=== PATIENT | male | born 1930 | race African-American/Black ===

== ENCOUNTER 2016-08-26 09:22 | Emergency (ER) | payer MEDICARE ==
[~2016-08-26] VITALS: Ht 175.3 cm; Wt 72.6 kg
[~2016-08-26 09:22] MED LIST: ASPIRIN81 MG ORAL; CLINDAMYCIN HC300 MG ORAL
[2016-08-26 09:47] VITALS: BP 152/89
[2016-08-26 10:33] LABS: BASOPHILS % (AUTO) 0.6 % (0.0-2.0); EOSINOPHILS % (AUTO) 9.3 % (0.0-3.0); LYMPHOCYTES % (AUTO) 29.9 % (20.0-45.0); MEAN CORPUSCULAR HEMOGLOBIN 31.4 PG (27.0-31.0); MEAN CORPUSCULAR HGB CONC 30.5 G/DL (32.0-36.0); MEAN CORPUSCULAR VOLUME 103 FL (80-99); MEAN PLATELET VOLUME 8.5 FL (6.5-10.1); MONOCYTES % (AUTO) 5.5 % (1.0-10.0); NEUTROPHILS % (AUTO) 54.7 % (45.0-75.0); PLATELET COUNT 144 K/UL (150-450); RED BLOOD COUNT 5.13 M/UL (4.70-6.10); RED CELL DISTRIBUTION WIDTH 16.2 % (11.6-14.8); WHITE BLOOD COUNT 4.7 K/UL (4.8-10.8)
[2016-08-26 10:36] LABS: INR 1.1 (0.9-1.1)
[2016-08-26 10:42] LABS: ALANINE AMINOTRANSFERASE 15 U/L (3-41); ALBUMIN/GLOBULIN RATIO 1.3 (1.0-2.7); ANION GAP 20 (5-15); ASPARTATE AMINO TRANSFERASE 26 U/L (5-40); CALCIUM 9.7 mg/dL (8.6-10.2); CARBON DIOXIDE 23 mEQ/L (20-30); CHLORIDE 100 mEQ/L (98-107); CREATININE 1.3 mg/dL (0.7-1.2); HEMOLYSIS 3; POTASSIUM 3.7 mEQ/L (3.4-4.9); SODIUM 143 mEQ/L (135-145); TOTAL PROTEIN 7.8 g/dL (6.6-8.7)
[2016-08-26 10:43] LABS: TROPONIN I < 0.30 ng/mL (<=0.30)
--- NOTE | 2016-08-26 10:46 | Diagnostic Imaging Report ---
Indications: Shoulder pain Technique: 3 views of the left shoulder Findings: Comparison: None No fracture, dislocation, lytic destruction, periosteal reaction, surrounding soft tissue swelling, or other acute change is demonstrated. No deformity, alignment abnormality, arthritic change, soft tissue calcification, or other chronic change is demonstrated. Left chest wall pacemaker. Left hilar nodular calcifications. IMPRESSION: Pacemaker Calcified old granulomatous disease left pulmonary hilum Otherwise negative left shoulder series.
--- NOTE | 2016-08-26 10:47 | Diagnostic Imaging Report ---
Indication: Chest pain Technique: Single portable AP view of the chest. Findings: Comparison: None. Cardiac silhouette enlarged. Thoracic aorta calcified, elongated. Calcified nodules left hilum. Left chest wall pacemaker, lead tips in the regions of right atrium and ventricle, respectively. The bones and extra pulmonary soft tissues, remainder of the cardiomediastinal silhouette, pulmonary vasculature and parenchyma, and pleural surfaces are unremarkable. IMPRESSION: No evidence of acute cardiopulmonary disease Cardiomegaly with pacemaker Aortosclerosis and probable chronic hypertensive change Calcified old granulomatous disease.
--- NOTE | 2016-08-26 10:52 | Emergency Room Report ---
History of Present Illness General Chief Complaint: Pain Source: Patient Present Illness HPI The patient presents with worsening of his left shoulder pain and pain from his neuropathy in his feet. He states the pain has become severe. Denies any fevers, chills, cough. The pain in his shoulder is nonexertional. He is not taking any medicine at this time. He is frustrated his MD is not helping. Pain reported 2/10, though he states keeps him awake. No trauma. The patient is post pacemaker placement. He denies diabetes or hypertension. Allergies: Coded Allergies: PENICILLINS (Verified Allergy, Intermediate, 10/05/15) Patient History Past Medical History: see triage record Social History Narrative at home Reviewed Nursing Documentation: PMH: Agreed, PSxH: Agreed Nursing Documentation-PMH Hx Cardiac Problems: Yes Hx Hypertension: Yes Hx Pacemaker: Yes - LEFT UPPER CHEST Hx Seizures: No - peripheral neuropathy Review of Systems All Other Systems: negative except mentioned in HPI Physical Exam Vital Signs Date Time Temp Pulse Resp B/P Pulse Ox O2 Delivery O2 Flow Rate FiO2 08/26/16 09:31 98.1 81 20 152/89 100 Room Air Sp02 EP Interpretation: reviewed, normal General Appearance: well appearing, no apparent distress, GCS 15 Head: normocephalic Eyes: bilateral eye PERRL, bilateral eye normal inspection ENT: moist mucus membranes, other - slight facial assymmetry Neck: full range of motion, supple Respiratory: chest non-tender, lungs clear, normal breath sounds Cardiovascular #1: regular rate, rhythm, no edema, other - some venous disease Cardiovascular #2: 2+ radial (R) Gastrointestinal: normal inspection, normal bowel sounds, non tender, no mass, non-distended Musculoskeletal: back normal, gait/station normal, normal range of motion - however, some shoulder pain with lifting and abduction against pressure Neurologic: alert, oriented x3, motor strength/tone normal, DTRs symmetric, sensory intact, cerebellar normal, normal gait, speech normal Psychiatric: mood/affect normal - though pressured Skin: normal inspection, warm/dry Medical Decision Making Diagnostic Impression: Primary Impression: Bursitis Qualified Codes: M75.52 - Bursitis of left shoulder Additional Impression: Peripheral neuropathic pain ER Course Patient presents with worsened shoulder and neuropathic pain. Ddx; cardiac cause, bursitis, DJD, rotator cuff, peripheral neuropathy, electrolyte abnormality. Evaluation needs to exclude cardiac cause. Electrolytes and xrays ordered. Analgesia also ordered. EKG no acute injury. Electrolytes and CBC unremarkable except for some polycythemia and elevated creatinine. These findings were discussed with the patient. Xrays unremarkable. .Patient improved with treatment. Discussed treatment of these pains and also physical therapy. Patient stable for outpatient observation and treatment. Labs Test 08/26/16 10:15 08/26/16 10:18 08/26/16 10:40 White Blood Count 4.7 K/UL (4.8-10.8) Red Blood Count 5.13 M/UL (4.70-6.10) Hemoglobin 16.1 G/DL (14.2-18.0) Hematocrit 52.9 % (42.0-52.0) Mean Corpuscular Volume 103 FL (80-99) Mean Corpuscular Hemoglobin 31.4 PG (27.0-31.0) Mean Corpuscular Hemoglobin Concent 30.5 G/DL (32.0-36.0) Red Cell Distribution Width 16.2 % (11.6-14.8) Platelet Count 144 K/UL (150-450) Mean Platelet Volume 8.5 FL (6.5-10.1) Neutrophils (%) (Auto) 54.7 % (45.0-75.0) Lymphocytes (%) (Auto) 29.9 % (20.0-45.0) Monocytes (%) (Auto) 5.5 % (1.0-10.0) Eosinophils (%) (Auto) 9.3 % (0.0-3.0) Basophils (%) (Auto) 0.6 % (0.0-2.0) Erythrocyte Sedimentation Rate 6 MM/HR (0-30) Prothrombin Time 12.0 SEC (9.30-11.50) Prothromb Time International Ratio 1.1 (0.9-1.1) Activated Partial Thromboplast Time 26 SEC (23-33) Sodium Level 143 mEQ/L (135-145) Potassium Level 3.7 mEQ/L (3.4-4.9) Chloride Level 100 mEQ/L (98-107) Carbon Dioxide Level 23 mEQ/L (20-30) Anion Gap 20 (5-15) Blood Urea Nitrogen 18 mg/dL (7-23) Creatinine 1.3 mg/dL (0.7-1.2) Estimat Glomerular Filtration Rate mL/min (>60) Glucose Level 155 mg/dL (74-106) Calcium Level 9.7 mg/dL (8.6-10.2) Total Bilirubin 1.3 mg/dL (0.0-1.2) Direct Bilirubin 0.3 mg/dL (0.1-0.3) Aspartate Amino Transf (AST/SGOT) 26 U/L (5-40) Alanine Aminotransferase (ALT/SGPT) 15 U/L (3-41) Alkaline Phosphatase 64 U/L (40-129) Total Creatine Kinase 239 U/L (38-174) Troponin I < 0.30 ng/mL (<=0.30) Pro-B-Type Natriuretic Peptide 890 pg/mL (0-450) Total Protein 7.8 g/dL (6.6-8.7) Albumin 4.5 g/dL (3.5-5.2) Globulin 3.3 g/dL Albumin/Globulin Ratio 1.3 (1.0-2.7) Urine Color Yellow Urine Appearance Clear Urine pH 6 (4.5-8.0) Urine Specific [place] 1.020 (1.005-1.035) Urine Protein 2+ (NEGATIVE) Urine Glucose (UA) Negative (NEGATIVE) Urine Ketones 1+ (NEGATIVE) Urine Occult Blood 3+ (NEGATIVE) Urine Nitrite Negative (NEGATIVE) Urine Bilirubin Negative (NEGATIVE) Urine Urobilinogen Normal MG/DL (0.0-1.0) Urine Leukocyte Esterase 1+ (NEGATIVE) Urine RBC 5-10 /HPF (0 - 0) Urine WBC 2-4 /HPF (0 - 0) Urine Squamous Epithelial Cells Few /LPF (NONE/OCC) Urine Bacteria Few /HPF (NONE) Urine Hyaline Casts 0-2 /LPF (NONE) Urine Mucus Few /LPF (NONE/OCC) Urine Opiates Screen Negative (NEGATIVE) Urine Barbiturates Screen Negative (NEGATIVE) Phencyclidine (PCP) Screen Negative (NEGATIVE) Urine Amphetamines Screen Negative (NEGATIVE) Urine Benzodiazepines Screen Negative (NEGATIVE) Urine Cocaine Screen Negative (NEGATIVE) Urine Marijuana (THC) Screen Negative (NEGATIVE) EKG Diagnostic Results Rate: other - paced Rhythm: other ST Segments: no acute changes Rhythm Strip Diag. Results EP Interpretation: yes Rhythm: no PVC's, no ectopy, other - paced Chest X-Ray Diagnostic Results Chest X-Ray Ordered: Yes # of Views/Limited/Complete: 1 View EP Interpretation: Yes Interpretation: no consolidation, no effusion, no pneumothorax, other - pacer Indication: Other Impression: No acute disease Interpreting ER Provider: Cooper Other X-Ray Diagnostic Results X-Ray ordered: L shoulder # of Views/Limited Vs Complete: 3 View EP Interpretation: Yes Interpretation: no fractures, no dislocation, no soft tissue swelling Indication: Pain Impression: No acute disease Interpreting ER Provider: cooper Last Vital Signs Date Time Temp Pulse Resp B/P Pulse Ox O2 Delivery O2 Flow Rate FiO2 08/26/16 13:11 98.1 78 20 145/86 100 Room Air Status: improved Disposition: HOME, SELF-CARE Condition: Improved Scripts Gabapentin* (GABAPENTIN*) 100 Mg Capsule 200 MG ORAL THREE TIMES A DAY, #30 CAP 2 Refills Prov: Aydin Gamboa M.D. 08/26/16 Ibuprofen* (MOTRIN*) 600 Mg Tablet 600 MG ORAL Q6H Y for For Pain, #20 TAB Prov: Aydin Gamboa M.D. 08/26/16 Tramadol Hcl* (ULTRAM*) 50 Mg Tablet 50 MG ORAL Q6H Y for For Pain, #10 TAB 0 Refills Prov: Aydin Gamboa M.D. 08/26/16 Vitamin B Complex (VITAMIN B COMPLEX) 1 Each Capsule 1 CAP ORAL DAILY, #30 CAP 0 Refills Prov: Aydin Gamboa M.D. 08/26/16 Referrals: KEIRY SALDANA (PCP) Aydin Gamboa M.D. Aug 26, 2016 10:52
[2016-08-26 10:57] LABS: APPEARANCE,URINE CLEAR; KETONES,URINE 1+ (NEGATIVE); LEUKOCYTE ESTERASE ,URINE 1+ (NEGATIVE); NITRITE,URINE NEGATIVE (NEGATIVE); PH,URINE 6 (4.5-8.0); PROTEIN,URINE 2+ (NEGATIVE); UROBILINOGEN,URINE NORMAL MG/DL (0.0-1.0)
[2016-08-26 11:03] LABS: BILIRUBIN,DIRECT 0.3 mg/dL (0.1-0.3)
[2016-08-26 11:12] LABS: BACTERIA,URINE FEW /HPF; HYALINE CASTS, URINE 0-2 /LPF; MUCUS,URINE FEW /LPF (NONE/OCC); SQUAMOUS EPITHELIAL CELL,UR FEW /LPF (NONE/OCC)
[2016-08-26 11:43] LABS: ERYTHROCYTE SEDIMENTATION RATE 6 MM/HR (0-30)
[2016-08-26 12:56] VITALS: BP 145/86
[2016-08-26 13:11] VITALS: BP 145/86
[2016-08-26] MEDS ORDERED: VITAMIN B COMP1 EAC2 ORAL (13:12)
[2016-08-26] MEDS ORDERED: IBUPROFEN600 MG ORAL (13:12)
[2016-08-26] MEDS ORDERED: GABAPENTIN100 MG ORAL (13:12)
[2016-08-26] MEDS ORDERED: TRAMADOL HCL50 MG ORAL (13:12)
== END 2016-08-26 13:23 | disposition home or self-care (01) ==
LOC: EMR 09:49
DX: M75.52 Bursitis of left shoulder (principal); G62.9 Polyneuropathy, unspecified; Z88.0 Allergy status to penicillin; I51.7 Cardiomegaly; Z95.0 Presence of cardiac pacemaker
CPT/HCPCS: 36415; 71010; 80053; 80300; 81003; 82248; 82550; 83880; 84484; 85025; 85610; 85651; 85730; 93005; 99284

== ENCOUNTER 2018-09-03 23:06 | Emergency (ER) | payer MEDICARE ==
[~2018-09-03] VITALS: Ht 177.8 cm; Wt 83.9 kg
[~2018-09-03 23:06] MED LIST changes: +GABAPENTIN100 MG ORAL; +IBUPROFEN600 MG ORAL; +TRAMADOL HCL50 MG ORAL; +VITAMIN B COMP1 EAC2 ORAL
[2018-09-03] MEDS ORDERED: NKM (23:12)
--- NOTE | 2018-09-03 23:17 | NUR ---
ED Nurse Note: SAUNDRA JOLLY RA [address] C/O ALOC SOB X 2230. PER EMS PT LIVES IN CAR . SPO2 96% ROOM AIR. Pt is AO x 4times, VSS, on room air no distress. ERMD seen Pt at bedside.
--- NOTE | 2018-09-03 23:28 | Emergency Room Report ---
History of Present Illness General Chief Complaint: Altered Level of Consciousness Source: Patient, EMS Present Illness HPI This is an 87-year-old male with history of pacemaker and hypertension. He presents with altered mental status and fever. He said he is not homeless but bystander called 911 because his car was parked on the sidewalk. His call was packed with belongings. Her EMS, he was confused and answering questions appropriately. Patient complained of shortness of breath. He said is been going for a while. Also with fever. Unknown duration. No nausea no vomiting. Patient is not a smoker or an alcoholic. Denies any other complaint. History otherwise challenging because of his mental status. Allergies: Coded Allergies: PENICILLINS (Verified Allergy, Intermediate, 10/05/15) Patient History Past Medical History: see triage record, old chart reviewed, HTN, CAD Past Surgical History: pacemaker Pertinent Family History: none Social History: Denies: smoking Immunizations: other Reviewed Nursing Documentation: PMH: Agreed; PSxH: Agreed Nursing Documentation-PMH Past Medical History: No History, Except For Hx Cardiac Problems: Yes Hx Hypertension: Yes Hx Pacemaker: Yes - LEFT UPPER CHEST Hx Seizures: No - peripheral neuropathy Review of Systems Constitutional: Reports: fever, malaise, weakness Eye: Denies: eye pain, blurred vision ENT: Denies: ear pain, nose congestion, throat swelling Respiratory: Reports: cough, shortness of breath Cardiovascular: Denies: chest pain, palpitations Gastrointestinal: Denies: abdominal pain, diarrhea, nausea, vomiting Musculoskeletal: Denies: back pain, joint pain Skin: Denies: rash Neurological: Denies: headache, numbness Endocrine: Denies: increased thirst, increased urine Hematologic/Lymphatic: Denies: easy bruising All Other Systems: negative except mentioned in HPI Physical Exam Vital Signs Date Time Temp Pulse Resp B/P (MAP) Pulse Ox O2 Delivery O2 Flow Rate FiO2 09/03/18 23:07 102.6 78 18 156/98 (117) 96 Room Air Vitals with fever Sp02 EP Interpretation: reviewed, normal General Appearance: alert, other - Ill-appearing Head: normocephalic, atraumatic Eyes: bilateral eye PERRL, bilateral eye EOMI ENT: hearing grossly normal, normal pharynx Neck: full range of motion, supple, no meningismus Respiratory: chest non-tender, decreased breath sounds, rhonchi Cardiovascular #1: regular rate, rhythm, no murmur Gastrointestinal: normal bowel sounds, non tender, no mass, no organomegaly, no bruit, non-distended Musculoskeletal: back normal, gait/station normal, normal range of motion Neurologic: other - confused Psychiatric: mood/affect normal Medical Decision Making Diagnostic Impression: Primary Impression: Sepsis Qualified Codes: A41.9 - Sepsis, unspecified organism Additional Impressions: Bronchitis Encephalopathy acute RODNEY (acute kidney injury) ER Course Patient presents with fever and coughing. Chest x-ray showed atelectasis but no definitive infiltrates. Clinically he has rhonchi on exam. Because of the fever and cough will put on antibiotics for possible early pneumonia. Patient said he is not homeless but he was found in his car with his belongings. No evidence of meningitis. I suspect that he has underlying dementia also. His neck is supple. No evidence of meningitis. No evidence of any acute abdomen or UTI. I discussed the case with Dr. Coburn he said that the patient for transfer to [facility]. Lab Results Impression Labs unremarkable EKG Diagnostic Results Rate: normal Rhythm: NSR ST Segments: other - Paced Rhythm Strip Diag. Results EP Interpretation: yes Rate: 80 Rhythm: NSR, no PVC's, no ectopy Chest X-Ray Diagnostic Results Chest X-Ray Diagnostic Results : Chest X-Ray Ordered: Yes # of Views/Limited/Complete: 1 View Indication: Shortness of Breath EP Interpretation: Yes Interpretation: no consolidation, no effusion, no pneumothorax, other - Atelectasis right lower lobe Impression: Other - atelectasis Electronically Signed by: Merlin Bonner MD Last Vital Signs Date Time Temp Pulse Resp B/P (MAP) Pulse Ox O2 Delivery O2 Flow Rate FiO2 09/03/18 23:07 102.6 78 18 156/98 (117) 96 Room Air Status: improved Disposition: XFER T-[facility] Condition: Stable Merlin Bonner MD Sep 03, 2018 23:28
[2018-09-03] MEDS ORDERED: Sodium Chloride 2,500 ML IVLG ONE (23:30)
[2018-09-03] MEDS ORDERED: Acetaminophen 500mg (ES) tab ORAL ONE (23:30)
--- NOTE | 2018-09-03 23:30 | NUR ---
ED Nurse Note: Blood and urine sample sent to lab.
[2018-09-03 23:49] LABS: HEMOGLOBIN 15.7 G/DL (14.2-18.0); MEAN CORPUSCULAR VOLUME 103 FL (80-99); PLATELET COUNT 126 K/UL (150-450); RED BLOOD COUNT 4.75 M/UL (4.70-6.10); RED CELL DISTRIBUTION WIDTH 15.6 % (11.6-14.8); WHITE BLOOD COUNT 8.6 K/UL (4.8-10.8)
--- NOTE | 2018-09-03 23:49 | NUR ---
ED Nurse Note: [employer] AT BEDSIDE.
[2018-09-03 23:53] LABS: APPEARANCE,URINE CLEAR; BILIRUBIN, URINE NEGATIVE (NEGATIVE); COLOR,URINE PALE YELLOW; GLUCOSE, URINE (UA) NEGATIVE (NEGATIVE); KETONES,URINE NEGATIVE (NEGATIVE); LEUKOCYTE ESTERASE ,URINE NEGATIVE (NEGATIVE); NITRITE,URINE NEGATIVE (NEGATIVE); PH,URINE 6 (4.5-8.0); PROTEIN,URINE 1+ (NEGATIVE); UROBILINOGEN,URINE NORMAL MG/DL (0.0-1.0)
--- NOTE | 2018-09-03 23:55 | Diagnostic Imaging Report ---
EXAM: XR Chest, 1 View CLINICAL HISTORY: SOB. TECHNIQUE: Frontal view of the chest. COMPARISON: CXR dated 08/26/2016. FINDINGS: Lungs: Mild right basilar atelectasis. Lungs otherwise appear clear. Pleural space: No significant pleural effusion. No pneumothorax. Heart: Enlarged cardiac silhouette. Stable cardiac device. Mediastinum: Widening of mediastinum measuring 13 cm transverse which could be partly related to mild rotation. Bones/joints: Stable osseous structures. IMPRESSION: 1. Widened mediastinum which could be partly related to mild rotation although mediastinal pathology is not excluded. If there is clinical concern for acute mediastinal process, CTA of the chest is recommended to further assess. 2. Mild right basilar atelectasis. Lungs otherwise appear clear. 3. Enlarged cardiac silhouette. Stable cardiac device.
[2018-09-04 00:04] VITALS: BP 135/106
[2018-09-04 00:04] LABS: INR 1.1 (0.9-1.1)
[2018-09-04 00:21] LABS: ANION GAP 10 mmol/L (5-15); BLOOD UREA NITROGEN 12 mg/dL (7-18); CALCIUM 9.1 MG/DL (8.5-10.1); CARBON DIOXIDE 28 MMOL/L (21-32); CHLORIDE 106 MMOL/L (98-107); CREATININE 1.5 MG/DL (0.55-1.30); POTASSIUM 4.3 MMOL/L (3.5-5.1); SODIUM 143 MMOL/L (136-145)
[2018-09-04 00:34] LABS: ALANINE AMINOTRANSFERASE 12 U/L (12-78); ALBUMIN 3.7 G/DL (3.4-5.0); ALBUMIN/GLOBULIN RATIO 0.9 (1.0-2.7); ALKALINE PHOSPHATASE 79 U/L (46-116); ASPARTATE AMINO TRANSFERASE 26 U/L (15-37); BILIRUBIN,TOTAL 1.7 MG/DL (0.2-1.0); CKMB 1.8 NG/ML (0.0-3.6); CREATINE KINASE 279 U/L (26-308)
[2018-09-04 00:35] LABS: BILIRUBIN,DIRECT 0.3 MG/DL (0.0-0.3)
--- NOTE | 2018-09-04 01:08 | NUR ---
ED Nurse Note: Repect lactic acid sent to lab.
[2018-09-04] MEDS ORDERED: Azithromycin 250mg tab ORAL ONE (01:15)
[2018-09-04] MEDS ORDERED: cefTRIAXone 1 GM in NS 55 ML IVPB ONE (01:15)
--- NOTE | 2018-09-04 01:38 | NUR ---
called, speaking with .
[2018-09-04 01:55] VITALS: BP 123/96
--- NOTE | 2018-09-04 01:57 | NUR ---
ED Nurse Note: Provide water for Pt, Pt VSS.
[2018-09-04 02:33] VITALS: BP 105/65
--- NOTE | 2018-09-04 03:14 | NUR ---
ED Nurse Note: Recheck Temp 98.7F.
--- NOTE | 2018-09-04 03:37 | NUR ---
ED Nurse Note: Report given to [facility] RN Christine. Pt will go to Tele unit.
[2018-09-04] MEDS ORDERED: Albuterol ud Inhalation HHN ONE (04:00)
[2018-09-04 04:49] VITALS: BP 117/64
--- NOTE | 2018-09-04 04:50 | NUR ---
ED Nurse Note: EMT arrived and tack picker Pt. Report given tp Addendum: 09/04/18 at 0451 by [facility] ED Nurse Note: EMT arrived and tack picker Pt. Report given to ELINOR Gallagher. Pt is AO x 4times, VSS, on 2L N/C no distress. All belongings gave to EMT team.
[2018-09-04 05:00] VITALS: BP 117/64
== END 2018-09-04 05:02 | disposition short-term general hospital (02) ==
LOC: EDBD 23:06 → EMR 23:19
DX: A41.9 Sepsis, unspecified organism (principal); J20.9 Acute bronchitis, unspecified; G93.40 Encephalopathy, unspecified; N17.9 Acute kidney failure, unspecified; Z88.0 Allergy status to penicillin; I10 Essential (primary) hypertension; Z95.0 Presence of cardiac pacemaker; G62.9 Polyneuropathy, unspecified; Z59.0 Homelessness
CPT/HCPCS: 36415; 71045; 80053; 81003; 82248; 82550; 82553; 83605; 84484; 85007; 85025; 85610; 85730; 87040; 93005; 94640; 94664; 96361; 96365; 99285; J0696

== ENCOUNTER 2019-02-06 20:36 | Inpatient (IN) | payer MEDICARE ==
[~2019-02-06] VITALS: Ht 185.4 cm; Wt 82.6 kg
[~2019-02-06 20:36] MED LIST changes: +NKM
[2019-02-06 21:00] VITALS: BP 163/100
[2019-02-06 21:14] LABS: BASOPHILS % (AUTO) 0.9 % (0.0-2.0); EOSINOPHILS % (AUTO) 8.1 % (0.0-3.0); HEMATOCRIT 42.2 % (42.0-52.0); HEMOGLOBIN 14.4 G/DL (14.2-18.0); LYMPHOCYTES % (AUTO) 39.8 % (20.0-45.0); MEAN CORPUSCULAR VOLUME 97 FL (80-99); NEUTROPHILS % (AUTO) 42.2 % (45.0-75.0); PLATELET COUNT 146 K/UL (150-450); RED BLOOD COUNT 4.36 M/UL (4.70-6.10); RED CELL DISTRIBUTION WIDTH 13.3 % (11.6-14.8); WHITE BLOOD COUNT 4.5 K/UL (4.8-10.8)
[2019-02-06 22:04] LABS: ANION GAP 3 mmol/L (5-15); BLOOD UREA NITROGEN 22 mg/dL (7-18); CARBON DIOXIDE 34 MMOL/L (21-32); CHLORIDE 110 MMOL/L (98-107); CREATININE 1.3 MG/DL (0.55-1.30); POTASSIUM 5.2 MMOL/L (3.5-5.1); SODIUM 146 MMOL/L (136-145)
--- NOTE | 2019-02-06 22:08 | Emergency Room Report ---
History of Present Illness General Chief Complaint: Pain Source: Patient, Medical Record Present Illness HPI Patient presents with complaints of neuropathy and tingling to both of his feet reports that he has had this several times in the past Denies any fall or trauma denies any pelvic pain denies any chest pain or shortness of breath Denies any focal weakness Patient denies any history of diabetes denies any recent fall Allergies: Coded Allergies: PENICILLINS (Verified Allergy, Intermediate, 10/05/15) Patient History Past Medical History: see triage record Reviewed Nursing Documentation: PMH: Agreed; PSxH: Agreed Nursing Documentation-PMH Past Medical History: No History, Except For Hx Cardiac Problems: Yes Hx Hypertension: Yes Hx Pacemaker: Yes - LEFT UPPER CHEST Hx Seizures: No - peripheral neuropathy Review of Systems All Other Systems: negative except mentioned in HPI Physical Exam Vital Signs Date Time Temp Pulse Resp B/P (MAP) Pulse Ox O2 Delivery O2 Flow Rate FiO2 02/06/19 20:34 98.8 64 19 163/100 (121) 98 Room Air Sp02 EP Interpretation: reviewed, normal General Appearance: well appearing, no apparent distress Head: normocephalic Eyes: bilateral eye PERRL, bilateral eye EOMI ENT: EOM grossly intact Neck: supple Respiratory: lungs clear, no respiratory distress, no retraction Cardiovascular #1: regular rate, rhythm Gastrointestinal: non tender Musculoskeletal: other - Patient has equal architect naval bilaterally moving both lower extremities equally, subjectively points to the bottom of both feet for the tingling sensation Neurologic: alert, oriented Psychiatric: normal inspection Skin: no rash Lymphatic: no adenopathy Medical Decision Making Diagnostic Impression: Primary Impression: Hyperkalemia Additional Impressions: Hypernatremia Peripheral neuropathic pain ER Course Given the patient's history and presentation multiple differentials are in consideration extensive blood work is initiated Patient sodium potassium and chloride are all elevated Further hydration is initiated Patient has further pain control and admitted for further care Labs Test 02/06/19 20:54 02/06/19 21:14 White Blood Count 4.5 K/UL (4.8-10.8) Red Blood Count 4.36 M/UL (4.70-6.10) Hemoglobin 14.4 G/DL (14.2-18.0) Hematocrit 42.2 % (42.0-52.0) Mean Corpuscular Volume 97 FL (80-99) Mean Corpuscular Hemoglobin 32.9 PG (27.0-31.0) Mean Corpuscular Hemoglobin Concent 34.0 G/DL (32.0-36.0) Red Cell Distribution Width 13.3 % (11.6-14.8) Platelet Count 146 K/UL (150-450) Mean Platelet Volume 7.9 FL (6.5-10.1) Neutrophils (%) (Auto) 42.2 % (45.0-75.0) Lymphocytes (%) (Auto) 39.8 % (20.0-45.0) Monocytes (%) (Auto) 9.0 % (1.0-10.0) Eosinophils (%) (Auto) 8.1 % (0.0-3.0) Basophils (%) (Auto) 0.9 % (0.0-2.0) Sodium Level 146 MMOL/L (136-145) Potassium Level 5.2 MMOL/L (3.5-5.1) Chloride Level 110 MMOL/L (98-107) Carbon Dioxide Level 34 MMOL/L (21-32) Anion Gap 3 mmol/L (5-15) Blood Urea Nitrogen 22 mg/dL (7-18) Creatinine 1.3 MG/DL (0.55-1.30) Estimat Glomerular Filtration Rate mL/min (>60) Glucose Level 90 MG/DL (74-106) Calcium Level 9.0 MG/DL (8.5-10.1) Total Bilirubin 0.5 MG/DL (0.2-1.0) Aspartate Amino Transf (AST/SGOT) 38 U/L (15-37) Alanine Aminotransferase (ALT/SGPT) 27 U/L (12-78) Alkaline Phosphatase 79 U/L (46-116) Total Protein 7.1 G/DL (6.4-8.2) Albumin 3.1 G/DL (3.4-5.0) Globulin 4.0 g/dL Albumin/Globulin Ratio 0.8 (1.0-2.7) EKG Diagnostic Results Rate: normal Rhythm: NSR ST Segments: no acute changes Rhythm Strip Diag. Results EP Interpretation: yes Rate: 66 Rhythm: NSR, no PVC's, no ectopy Last Vital Signs Date Time Temp Pulse Resp B/P (MAP) Pulse Ox O2 Delivery O2 Flow Rate FiO2 02/06/19 21:00 98.8 19 163/100 98 Room Air 02/06/19 20:34 64 Status: improved Disposition: ADMITTED INPATIENT Condition: Serious Referrals: NON PHYSICIAN (PCP) Dipak Menard DO Feb 06, 2019 22:08
[2019-02-06 22:09] LABS: ALANINE AMINOTRANSFERASE 27 U/L (12-78); ALBUMIN 3.1 G/DL (3.4-5.0); ALBUMIN/GLOBULIN RATIO 0.8 (1.0-2.7); ALKALINE PHOSPHATASE 79 U/L (46-116); ASPARTATE AMINO TRANSFERASE 38 U/L (15-37); BILIRUBIN,TOTAL 0.5 MG/DL (0.2-1.0)
[2019-02-06 23:56] VITALS: BP 162/98
[2019-02-07 04:00] VITALS: BP 152/99
[2019-02-07] MEDS ORDERED: Morphine Sulfate 2mg/ml Inj(IV/IM USE ONLY) IVP PRN (07:15)
[2019-02-07] MEDS ORDERED: HYDROcodone/Acetamin 10/325 tab ORAL PRN (07:15)
[2019-02-07 07:57] LABS: ANION GAP 2 mmol/L (5-15); BLOOD UREA NITROGEN 18 mg/dL (7-18); CALCIUM 8.8 MG/DL (8.5-10.1); CARBON DIOXIDE 32 MMOL/L (21-32); CHLORIDE 109 MMOL/L (98-107); CREATININE 1.3 MG/DL (0.55-1.30); POTASSIUM 4.8 MMOL/L (3.5-5.1); SODIUM 143 MMOL/L (136-145)
[2019-02-07 08:00] VITALS: BP 154/92
[2019-02-07 08:07] LABS: EOSINOPHILS % (AUTO) 8.2 % (0.0-3.0); HEMATOCRIT 43.2 % (42.0-52.0); HEMOGLOBIN 14.3 G/DL (14.2-18.0); LYMPHOCYTES % (AUTO) 37.4 % (20.0-45.0); MEAN CORPUSCULAR VOLUME 99 FL (80-99); MONOCYTES % (AUTO) 7.9 % (1.0-10.0); NEUTROPHILS % (AUTO) 44.5 % (45.0-75.0); PLATELET COUNT 145 K/UL (150-450); RED BLOOD COUNT 4.37 M/UL (4.70-6.10); RED CELL DISTRIBUTION WIDTH 15.1 % (11.6-14.8); WHITE BLOOD COUNT 3.8 K/UL (4.8-10.8)
[2019-02-07] MEDS: D5 1/2NS 1,000 ML IV SCH ×2 (08:35→17:24)
[2019-02-07 12:00] VITALS: BP 147/81
[2019-02-07 16:00] VITALS: BP 140/82
--- NOTE | 2019-02-07 16:04 | Diagnostic Imaging Report ---
Indication: Abnormal chest sounds Technique: One view of the chest Comparison: 09/03/2018 Findings: There are inspiration currently. There is a left chest bifocal pacemaker again demonstrated. The heart is borderline enlarged. The aorta is tortuous ectatic and calcified. No significant interim change Impression: No acute process
[2019-02-07 18:02] LABS: APPEARANCE,URINE CLEAR; BILIRUBIN, URINE NEGATIVE (NEGATIVE); COLOR,URINE PALE YELLOW; GLUCOSE, URINE (UA) NEGATIVE (NEGATIVE); KETONES,URINE NEGATIVE (NEGATIVE); LEUKOCYTE ESTERASE ,URINE NEGATIVE (NEGATIVE); NITRITE,URINE NEGATIVE (NEGATIVE); PH,URINE 7 (4.5-8.0); PROTEIN,URINE NEGATIVE (NEGATIVE); UROBILINOGEN,URINE NORMAL MG/DL (0.0-1.0)
[2019-02-07 20:00] VITALS: BP_SYST 122; BP_SYST 125; BP_DIAS 75; BP_DIAS 76
--- NOTE | 2019-02-07 22:30 | History and Physical Report ---
DATE OF ADMISSION: 02/07/2019 HISTORY OF PRESENT ILLNESS: The patient is an 88-year-old homeless man, who reports that he had severe burning pain in his feet that he has had before. He is living on the [address] on and has another homeless person to call 911. He was brought to the emergency department and found to have some dehydration and admission was arranged. The patient states that he is feeling much better since getting intravenous fluids. PAST MEDICAL HISTORY: The records indicate a history of hypertension and he has a pacemaker in place, but he cannot remember how long it was put in. He may have a history of coronary disease and dementia. He was admitted through the emergency department and transferred to another hospital in August of this year with pneumonia. CURRENT MEDICATIONS: Numerous home medications listed, but he states he does not take any medication. ALLERGIES: Penicillin. REVIEW OF SYSTEMS: Otherwise unremarkable. He had no fevers, chills, or sweats. No chest pain or shortness of breath. He has no nausea, vomiting, or diarrhea. There is no difficulty urinating. PHYSICAL EXAMINATION: GENERAL: The patient is well developed, but appears malnourished. HEENT: The head is normocephalic. NECK: No jugular venous distention. CHEST: Clear. Pacemaker is in the left subclavian region. CARDIAC: Rhythm is regular without murmur or gallop. ABDOMEN: Soft and nontender. Liver and spleen not enlarged. EXTREMITIES: No clubbing, cyanosis, or edema. NEUROLOGIC: Memory is poor. Orientation is x2 for the place and person, but not the date. LABORATORY STUDIES: Labs show sodium 146, potassium 5.2, BUN is 22, and creatinine 1.3 on admission. The albumin is 3.1. The hemoglobin is normal. White count is 4500 and platelets 146,000. Urinalysis is pending. IMPRESSION: 1. Dehydration. 2. Painful neuropathy. 3. Homelessness. 4. Dementia. 5. Mild malnutrition with low albumin. 6. Pacemaker. 7. Hypertension. 8. History of coronary disease, inactive. PLAN: The patient will be given intravenous fluids and gabapentin will be initiated and we will get social service to start discharge planning. Ananda Resendiz M.D. DR: SUKHJINDER JOB#: [id number] CC: Ananda Resendiz M.D.; Fax#: [phone]
[2019-02-08] VITALS (7 sets, daily range): BP systolic 111–154; BP diastolic 64–84
[2019-02-08] MEDS: D5 1/2NS 1,000 ML IV SCH ×2 (00:31→07:28)
[2019-02-08 06:35] LABS: BASOPHILS % (AUTO) 0.9 % (0.0-2.0); EOSINOPHILS % (AUTO) 9.4 % (0.0-3.0); HEMATOCRIT 40.6 % (42.0-52.0); HEMOGLOBIN 13.1 G/DL (14.2-18.0); MEAN CORPUSCULAR VOLUME 100 FL (80-99); MONOCYTES % (AUTO) 6.6 % (1.0-10.0); PLATELET COUNT 119 K/UL (150-450); RED BLOOD COUNT 4.08 M/UL (4.70-6.10); RED CELL DISTRIBUTION WIDTH 14.5 % (11.6-14.8); WHITE BLOOD COUNT 3.6 K/UL (4.8-10.8)
[2019-02-08 07:17] LABS: ALANINE AMINOTRANSFERASE 22 U/L (12-78); ALBUMIN 2.9 G/DL (3.4-5.0); ALBUMIN/GLOBULIN RATIO 0.8 (1.0-2.7); ALKALINE PHOSPHATASE 65 U/L (46-116); ANION GAP 7 mmol/L (5-15); ASPARTATE AMINO TRANSFERASE 32 U/L (15-37); BILIRUBIN,TOTAL 0.8 MG/DL (0.2-1.0); BLOOD UREA NITROGEN 15 mg/dL (7-18); CALCIUM 8.8 MG/DL (8.5-10.1); CARBON DIOXIDE 27 MMOL/L (21-32); CHLORIDE 108 MMOL/L (98-107); CHOLESTEROL 154 MG/DL (< 200); CREATININE 1.2 MG/DL (0.55-1.30); HDL CHOLESTEROL 49 MG/DL (40-60); POTASSIUM 4.1 MMOL/L (3.5-5.1); SODIUM 142 MMOL/L (136-145); TRIGLYCERIDES 42 MG/DL (30-150)
--- NOTE | 2019-02-08 11:32 | General Progress Note ---
Assessment/Plan Status: progressing Assessment/Plan: 1. Dehydration. 2. Painful neuropathy. 3. Homelessness. 4. Dementia. 5. Mild malnutrition with low albumin. 6. Pacemaker. 7. Hypertension. 8. History of coronary disease, inactive. feels weak, gait unsteady PT eval BUN better; dc IVF dc plan to SNF for PT Subjective Constitutional: Reports: weakness Allergies: Coded Allergies: PENICILLINS (Verified Allergy, Intermediate, 10/05/15) Subjective neuropathic pain, LEs Objective Last 24 Hour Vital Signs Date Time Temp Pulse Resp B/P (MAP) Pulse Ox O2 Delivery O2 Flow Rate FiO2 02/08/19 10:35 Room Air 02/08/19 08:00 97.9 60 18 127/82 (97) 98 02/08/19 04:00 97.3 62 18 147/83 (104) 97 02/08/19 00:00 98.3 62 18 148/76 (100) 99 02/07/19 21:00 Room Air 02/07/19 20:00 97.7 75 18 122/75 (91) 99 02/07/19 16:00 97.9 65 17 140/82 (101) 99 02/07/19 12:00 97.6 60 18 147/81 (103) 98 Intake and Output 02/07/19 02/08/19 19:00 07:00 Intake Total 1625 ml 1250 ml Output Total 500 ml 600 ml Balance 1125 ml 650 ml Intake Oral 500 ml IV Total 1125 ml 1250 ml Output Urine Total 500 ml 600 ml Laboratory Tests 02/07/19 17:30: Urine Color Pale yellow, Urine Appearance Clear, Urine pH 7, Urine Specific [place] 1.010, Urine Protein Negative, Urine Glucose (UA) Negative, Urine Ketones Negative, Urine Blood Negative, Urine Nitrite Negative, Urine Bilirubin Negative, Urine Urobilinogen Normal, Urine Leukocyte Esterase Negative, Urine RBC 0, Urine WBC 0-2, Urine Squamous Epithelial Cells None, Urine Bacteria None 02/08/19 05:40: White Blood Count 3.6L, Red Blood Count 4.08L, Hemoglobin 13.1L, Hematocrit 40.6L, Mean Corpuscular Volume 100H, Mean Corpuscular Hemoglobin 32.2H, Mean Corpuscular Hemoglobin Concent 32.3, Red Cell Distribution Width 14.5, Platelet Count 119L, Mean Platelet Volume 7.7, Neutrophils (%) (Auto) 39.0L, Lymphocytes (%) (Auto) 44.0, Monocytes (%) (Auto) 6.6, Eosinophils (%) (Auto) 9.4H, Basophils (%) (Auto) 0.9, Sodium Level 142, Potassium Level 4.1, Chloride Level 108H, Carbon Dioxide Level 27, Anion Gap 7, Blood Urea Nitrogen 15, Creatinine 1.2, Estimat Glomerular Filtration Rate , Glucose Level 94, Calcium Level 8.8, Total Bilirubin 0.8, Aspartate Amino Transf (AST/SGOT) 32, Alanine Aminotransferase (ALT/SGPT) 22, Alkaline Phosphatase 65, Total Protein 6.6, Albumin 2.9L, Globulin 3.7, Albumin/Globulin Ratio 0.8L, Triglycerides Level 42 , Cholesterol Level 154, LDL Cholesterol 95, HDL Cholesterol 49, Cholesterol/ HDL Ratio 3.1L, Vitamin B12 Level 392, Thyroid Stimulating Hormone (TSH) 1.467, Total Testosterone [Pending] Height (Feet): 6 Height (Inches): 1.00 Weight (Pounds): 185 General Appearance: no apparent distress Neck: supple Cardiovascular: normal rate Respiratory/Chest: lungs clear Ananda Resendiz MD Feb 08, 2019 11:32
[2019-02-08] MEDS ORDERED: Haloperidol Decanoate (Long Acting) 50mg Inj IM SCH (14:00)
--- NOTE | 2019-02-08 16:15 | Consultation ---
DATE OF CONSULTATION: 02/08/2019 NOTE: INCOMPLETE DICTATION CONSULTING PHYSICIAN: Mercedes Ceja M.D. HISTORY OF PRESENT ILLNESS: This is an 88-year-old male with a history of depression. He was a homeless person, presents with depressed mood, anhedonia, worthlessness, and hopelessness. Mercedes Ceja M.D. DR: ARIS JOB#: [id number] CC:
--- NOTE | 2019-02-08 17:00 | Consultation ---
DATE OF CONSULTATION: 02/08/2019 CONSULTING PHYSICIAN: Mercedes Ceja M.D. HISTORY OF PRESENT ILLNESS: The patient is an 88-year-old male with a history of depression, anxiety, homeless, who has been admitted to the hospital for medical stabilization. The patient presents with depressed mood, anhedonia, worthlessness, hopelessness, and decreased energy. He denies any suicidal or homicidal ideation. The patient agreed to be on antidepressants. PAST PSYCHIATRIC HISTORY: Depression. He never had a history of suicide attempt. PAST MEDICAL HISTORY: Significant for bursitis, hyperkalemia, and peripheral neuropathy pain. ALLERGIES: Includes penicillin. SUBSTANCE ABUSE HISTORY: No known history of illicit drug use or alcohol. MENTAL STATUS EXAMINATION: Alert and oriented times to self, place, situation, and date. Mood is depressed. Affect is constricted, congruent with mood. Thought process is concrete. Thought content, no suicidal or homicidal ideation. ASSESSMENT: AXIS I: Major depressive disorder. AXIS II: Deferred. AXIS III: As above. AXIS IV: Low. AXIS V: 50. PLAN: 1. We will start the patient on Lexapro 10 mg in the morning. 2. The patient may be discharged when medically cleared. Mercedes Ceja M.D. DR: SAMMIE JOB#: [id number] CC:
[2019-02-09] VITALS: BP 149/90
[2019-02-09 04:00] VITALS: BP 144/83
[2019-02-09 08:00] VITALS: BP 128/86
--- NOTE | 2019-02-09 09:15 | Pulmonology Progress Note ---
Assessment/Plan Problems: (1) Peripheral neuropathic pain (2) Depression (3) Homeless Assessment/Plan Pain control/supportive care PT/OT Psych recs SLIV DVT Px: SCD, OOB Disp planning to SNF Subjective Allergies: Coded Allergies: PENICILLINS (Verified Allergy, Intermediate, 10/05/15) Subjective AFVSS on RA Working with PT Still with b foot pain No F/C/CP/SOB/N/V/D/C Objective Last 24 Hour Vital Signs Date Time Temp Pulse Resp B/P (MAP) Pulse Ox O2 Delivery O2 Flow Rate FiO2 02/09/19 08:00 97.3 99 18 128/86 (100) 98 02/09/19 04:00 97.0 56 18 144/83 (103) 99 02/09/19 00:00 97.3 61 18 149/90 (109) 98 02/08/19 21:00 Room Air 02/08/19 20:00 99.0 60 18 144/70 (94) 96 02/08/19 16:00 98.2 78 18 123/79 (94) 97 02/08/19 12:23 87 154/77 02/08/19 12:00 97.9 77 18 154/84 (107) 98 02/08/19 10:35 Room Air Intake and Output 02/08/19 02/09/19 18:59 06:59 Intake Total 1050 ml Balance 1050 ml Intake Oral 800 ml IV Total 250 ml # Voids 4 12 General Appearance: WD/WN, no acute distress HEENT: normocephalic, atraumatic, anicteric, mucous membranes moist Respiratory/Chest: chest wall non-tender, lungs clear, normal breath sounds, no respiratory distress, no accessory muscle use Cardiovascular: normal peripheral pulses, normal rate, regular rhythm Abdomen: normal bowel sounds, soft, non tender, no organomegaly, non distended , no mass Extremities: no cyanosis, no clubbing, no edema Current Medications Medications (Trade) Dose Ordered Sig/Sergio Route PRN Reason Start Time Stop Time Status Last Admin Dose Admin Acetaminophen (Tylenol) 650 mg Q4H PRN ORAL Mild Pain/Temp > 100.5 02/07/19 07:15 03/09/19 07:14 Acetaminophen/ Hydrocodone Bitart ([place] 10/325) 1 tab Q4H PRN ORAL Moderate Pain (Pain Scale 4-6) 02/07/19 07:15 02/14/19 07:14 Amlodipine Besylate (Norvasc) 5 mg DAILY ORAL 02/08/19 12:00 03/10/19 11:59 02/08/19 12:23 Gabapentin (Neurontin) 300 mg THREE TIMES A DAY ORAL 02/07/19 13:00 03/09/19 12:59 02/08/19 17:30 Morphine Sulfate (Morphine Sulfate) 1 mg Q4H PRN IVP Severe Pain (Pain Scale 7-10) 02/07/19 07:15 02/14/19 07:14 Ondansetron HCl (Zofran) 4 mg Q4H PRN IVP Nausea & Vomiting 02/07/19 07:15 03/09/19 07:14 Javier Moses MD Feb 09, 2019 09:15
[2019-02-09 12:00] VITALS: BP 118/71
[2019-02-09 16:00] VITALS: BP 111/76
[2019-02-09 20:00] VITALS: BP 121/71
[2019-02-10] VITALS: BP 121/72
[2019-02-10 04:00] VITALS: BP 121/75
[2019-02-10 08:00] VITALS: BP 114/58
[2019-02-10 12:00] VITALS: BP 145/85
[2019-02-10 16:00] VITALS: BP 138/76
--- NOTE | 2019-02-10 17:28 | Pulmonology Progress Note ---
Assessment/Plan Problems: (1) Peripheral neuropathic pain (2) Depression (3) Homeless Assessment/Plan Pain control/supportive care PT/OT Psych recs SLIV DVT Px: SCD, OOB Disp planning to SNF Subjective Allergies: Coded Allergies: PENICILLINS (Verified Allergy, Intermediate, 10/05/15) Subjective AFVSS on RA Working with PT Still with b foot pain No F/C/CP/SOB/N/V/D/C Objective Last 24 Hour Vital Signs Date Time Temp Pulse Resp B/P (MAP) Pulse Ox O2 Delivery O2 Flow Rate FiO2 02/10/19 16:00 97.8 67 18 138/76 (96) 97 02/10/19 12:00 97.7 62 18 145/85 (105) 98 02/10/19 09:00 Room Air 02/10/19 08:49 81 114/58 02/10/19 08:00 97.5 81 18 114/58 (76) 97 02/10/19 04:00 97.6 50 18 121/75 (90) 95 02/10/19 00:00 97.6 60 18 121/72 (88) 100 02/09/19 21:00 Room Air 02/09/19 20:00 97.6 61 18 121/71 (88) 96 Intake and Output 02/09/19 02/10/19 18:59 06:59 Intake Total 840 ml 480 ml Output Total 150 ml Balance 690 ml 480 ml Intake Oral 840 ml 480 ml Output Urine Total 150 ml # Voids 2 2 General Appearance: WD/WN, no acute distress HEENT: normocephalic, atraumatic, anicteric, mucous membranes moist Respiratory/Chest: chest wall non-tender, lungs clear, normal breath sounds, no respiratory distress, no accessory muscle use Cardiovascular: normal peripheral pulses, normal rate, regular rhythm Abdomen: normal bowel sounds, soft, non tender, no organomegaly, non distended , no mass Extremities: no cyanosis, no clubbing, no edema Current Medications Medications (Trade) Dose Ordered Sig/Sergio Route PRN Reason Start Time Stop Time Status Last Admin Dose Admin Acetaminophen (Tylenol) 650 mg Q4H PRN ORAL Mild Pain/Temp > 100.5 02/07/19 07:15 03/09/19 07:14 Acetaminophen/ Hydrocodone Bitart ([place] 10/325) 1 tab Q4H PRN ORAL Moderate Pain (Pain Scale 4-6) 02/07/19 07:15 02/14/19 07:14 Amlodipine Besylate (Norvasc) 5 mg DAILY ORAL 02/08/19 12:00 03/10/19 11:59 02/10/19 08:49 Gabapentin (Neurontin) 300 mg THREE TIMES A DAY ORAL 02/07/19 13:00 03/09/19 12:59 02/10/19 12:42 Morphine Sulfate (Morphine Sulfate) 1 mg Q4H PRN IVP Severe Pain (Pain Scale 7-10) 02/07/19 07:15 02/14/19 07:14 Ondansetron HCl (Zofran) 4 mg Q4H PRN IVP Nausea & Vomiting 02/07/19 07:15 03/09/19 07:14 Javier Moses MD Feb 10, 2019 17:28
[2019-02-10 19:56] VITALS: BP 120/70
[2019-02-11 04:31] VITALS: BP 118/72
[2019-02-11 08:00] VITALS: BP 139/49
[2019-02-11 12:00] VITALS: BP 128/67
--- NOTE | 2019-02-11 13:55 | General Progress Note ---
Assessment/Plan Status: progressing Assessment/Plan: 1. Dehydration, resolved 2. Painful neuropathy, not improved 3. Homelessness. 4. Dementia. 5. Mild malnutrition with low albumin. 6. Pacemaker. 7. Hypertension. 8. History of coronary disease, inactive. raise neurontin dc plan to SNF when bed available Subjective Neurologic/Psychiatric: Reports: paresthesia, tingling Allergies: Coded Allergies: PENICILLINS (Verified Allergy, Intermediate, 10/05/15) Subjective neuropathic pain, LEs Objective Last 24 Hour Vital Signs Date Time Temp Pulse Resp B/P (MAP) Pulse Ox O2 Delivery O2 Flow Rate FiO2 02/11/19 12:00 97.9 79 20 128/67 (87) 100 02/11/19 09:00 Room Air 02/11/19 08:41 110 119/68 02/11/19 08:00 96.3 64 20 139/49 (79) 93 02/11/19 04:31 98.2 68 118/72 (87) 02/10/19 20:06 Room Air 02/10/19 19:56 98.4 61 18 120/70 (87) 98 02/10/19 16:00 97.8 67 18 138/76 (96) 97 Intake and Output 02/10/19 02/11/19 19:00 07:00 Intake Total 960 ml 800 ml Balance 960 ml 800 ml Intake Oral 960 ml 800 ml # Voids 2 3 Height (Feet): 6 Height (Inches): 1.00 Weight (Pounds): 182 General Appearance: no apparent distress Cardiovascular: normal rate Ananda Resendiz MD Feb 11, 2019 13:55
[2019-02-11 16:00] VITALS: BP 111/68
[2019-02-11 20:00] VITALS: BP 137/81
[2019-02-12] VITALS: BP 129/75
--- NOTE | 2019-02-12 00:15 | Progress Note ---
DATE: 02/11/2019 SUBJECTIVE: The patient is in bed, depressed, withdrawn and isolative. Continues to take Lexapro, depressed mood, anhedonia, worthlessness. MENTAL STATUS EXAMINATION: Alert and oriented times self, place, and situation. Mood is depressed. Affect is constricted. Congruent with mood. Thought process is concrete. Thought content, no suicidal or homicidal ideation. ASSESSMENT: Major depressive disorder. PLAN: 1. We will continue Lexapro. 2. Provide the patient with reality orientation and supportive therapy. Mercedes Ceja M.D. DR: Aislinn JOB#: [id number] CC:
[2019-02-12 08:00] VITALS: BP 134/78
[2019-02-12 12:00] VITALS: BP 140/79
[2019-02-12 16:00] VITALS: BP 127/73
--- NOTE | 2019-02-12 19:33 | Pulmonology Progress Note ---
Assessment/Plan Assessment/Plan Assessment/Plan: 1. Dehydration, resolved 2. Painful neuropathy, not improved 3. Homelessness. 4. Dementia. 5. Mild malnutrition with low albumin. 6. Pacemaker. 7. Hypertension. 8. History of coronary disease, inactive. on neurontin dc plan to SNF when bed available Subjective Constitutional: Reports: no symptoms HEENT: Repors: no symptoms Respiratory: Reports: no symptoms Gastrointestinal/Abdominal: Reports: no symptoms Allergies: Coded Allergies: PENICILLINS (Verified Allergy, Intermediate, 10/05/15) Subjective no complaints tolerating po no cp nv or bleeding oob no fever off o2 Objective Last 24 Hour Vital Signs Date Time Temp Pulse Resp B/P (MAP) Pulse Ox O2 Delivery O2 Flow Rate FiO2 02/12/19 16:00 97.9 60 18 127/73 (91) 98 02/12/19 12:00 97.5 60 19 140/79 (99) 96 02/12/19 09:00 Room Air 02/12/19 08:47 86 134/78 02/12/19 08:00 98.1 86 20 134/78 (96) 98 02/12/19 00:00 98.1 62 16 129/75 (93) 98 02/11/19 21:00 Room Air 02/11/19 20:00 97.3 78 16 137/81 (99) 96 Intake and Output 02/11/19 02/12/19 18:59 06:59 Intake Total 1200 ml 360 ml Balance 1200 ml 360 ml Intake Oral 1200 ml 360 ml # Voids 4 # Bowel Movements 1 General Appearance: WD/WN Respiratory/Chest: lungs clear Cardiovascular: normal rate, regular rhythm Abdomen: soft, non tender, non distended Extremities: no cyanosis Skin: no rash Neurologic/Psychiatric: alert, oriented x 3 Current Medications Medications (Trade) Dose Ordered Sig/Sergio Route PRN Reason Start Time Stop Time Status Last Admin Dose Admin Acetaminophen (Tylenol) 650 mg Q4H PRN ORAL Mild Pain/Temp > 100.5 02/07/19 07:15 03/09/19 07:14 Acetaminophen/ Hydrocodone Bitart ([place] 10/325) 1 tab Q4H PRN ORAL Moderate Pain (Pain Scale 4-6) 02/07/19 07:15 02/14/19 07:14 Amlodipine Besylate (Norvasc) 5 mg DAILY ORAL 02/08/19 12:00 03/10/19 11:59 02/12/19 08:47 Escitalopram Oxalate (Lexapro) 10 mg DAILY ORAL 02/12/19 09:00 03/14/19 08:59 02/12/19 08:47 Gabapentin (Neurontin) 600 mg THREE TIMES A DAY ORAL 02/11/19 18:00 03/09/19 12:59 02/12/19 17:53 Morphine Sulfate (Morphine Sulfate) 1 mg Q4H PRN IVP Severe Pain (Pain Scale 7-10) 02/07/19 07:15 02/14/19 07:14 Ondansetron HCl (Zofran) 4 mg Q4H PRN IVP Nausea & Vomiting 02/07/19 07:15 03/09/19 07:14 Roslyn Martin DO Feb 12, 2019 19:33
[2019-02-12 20:00] VITALS: BP 141/83
[2019-02-13] VITALS: BP 124/68
[2019-02-13 04:00] VITALS: BP 137/74
[2019-02-13 08:00] VITALS: BP 150/92
--- NOTE | 2019-02-13 08:09 | Pulmonology Progress Note ---
Assessment/Plan Assessment/Plan Assessment/Plan: 1. Dehydration, resolved 2. Painful neuropathy, not improved 3. Homelessness. 4. Dementia. 5. Mild malnutrition with low albumin. 6. Pacemaker. 7. Hypertension. 8. History of coronary disease, inactive. on neurontin dc plan to SNF when bed available Subjective Constitutional: Reports: no symptoms HEENT: Repors: no symptoms Respiratory: Reports: no symptoms Cardiovascular: Reports: no symptoms Allergies: Coded Allergies: PENICILLINS (Verified Allergy, Intermediate, 10/05/15) Subjective no complaints tolerating po no cp nv or bleeding oob to BR, complains of neuropathy no fever off o2 Objective Last 24 Hour Vital Signs Date Time Temp Pulse Resp B/P (MAP) Pulse Ox O2 Delivery O2 Flow Rate FiO2 02/13/19 04:00 98.2 72 18 137/74 (95) 97 02/13/19 00:00 97.9 60 18 124/68 (86) 98 02/12/19 21:00 Room Air 02/12/19 20:00 97.1 60 19 141/83 (102) 98 02/12/19 16:00 97.9 60 18 127/73 (91) 98 02/12/19 12:00 97.5 60 19 140/79 (99) 96 02/12/19 09:00 Room Air 02/12/19 08:47 86 134/78 Intake and Output 02/12/19 02/13/19 19:00 07:00 Intake Total 720 ml 380 ml Output Total 600 ml Balance 120 ml 380 ml Intake Oral 720 ml 380 ml Output Urine Total 600 ml # Voids 2 # Bowel Movements 1 General Appearance: cachetic Respiratory/Chest: lungs clear, normal breath sounds Cardiovascular: normal rate, regularly irregular Abdomen: soft, non tender, no organomegaly Extremities: no cyanosis Skin: no lesions Neurologic/Psychiatric: alert, oriented x 3, responsive Current Medications Medications (Trade) Dose Ordered Sig/Sergio Route PRN Reason Start Time Stop Time Status Last Admin Dose Admin Acetaminophen (Tylenol) 650 mg Q4H PRN ORAL Mild Pain/Temp > 100.5 02/07/19 07:15 03/09/19 07:14 Acetaminophen/ Hydrocodone Bitart ([place] 10/325) 1 tab Q4H PRN ORAL Moderate Pain (Pain Scale 4-6) 02/07/19 07:15 02/14/19 07:14 Amlodipine Besylate (Norvasc) 5 mg DAILY ORAL 02/08/19 12:00 03/10/19 11:59 02/12/19 08:47 Escitalopram Oxalate (Lexapro) 10 mg DAILY ORAL 02/12/19 09:00 03/14/19 08:59 02/12/19 08:47 Gabapentin (Neurontin) 600 mg THREE TIMES A DAY ORAL 02/11/19 18:00 03/09/19 12:59 02/12/19 17:53 Morphine Sulfate (Morphine Sulfate) 1 mg Q4H PRN IVP Severe Pain (Pain Scale 7-10) 02/07/19 07:15 02/14/19 07:14 Ondansetron HCl (Zofran) 4 mg Q4H PRN IVP Nausea & Vomiting 02/07/19 07:15 03/09/19 07:14 Roslyn Martin DO Feb 13, 2019 08:09
[2019-02-13 12:00] VITALS: BP 126/76
[2019-02-13 16:00] VITALS: BP 131/76
[2019-02-13 20:00] VITALS: BP 129/74
[2019-02-14 00:16] VITALS: BP 124/84
[2019-02-14 04:00] VITALS: BP 136/87
[2019-02-14 08:00] VITALS: BP 110/71
[2019-02-14 12:00] VITALS: BP 124/70
[2019-02-14] MEDS ORDERED: AMLODIPINE BESYL5 MG ORAL (12:47)
[2019-02-14] MEDS ORDERED: ESCITALOPRAM OX10 MG ORAL (12:47)
[2019-02-14] MEDS ORDERED: GABAPENTIN600 MG ORAL (12:48)
[2019-02-14 16:00] VITALS: BP 122/68
--- NOTE | 2019-02-14 19:32 | General Progress Note ---
Assessment/Plan Status: progressing Assessment/Plan: 1. Dehydration, resolved 2. Painful neuropathy, not improved 3. Homelessness. 4. Dementia. 5. Mild malnutrition with low albumin. 6. Pacemaker. 7. Hypertension. 8. History of coronary disease, inactive. continue neurontin dc plan to SNF, bed available today Subjective Time patient seen: 08:40 Constitutional: Reports: no symptoms Neurologic/Psychiatric: Reports: paresthesia Allergies: Coded Allergies: PENICILLINS (Verified Allergy, Intermediate, 10/05/15) Subjective neuropathic pain, LEs Objective Last 24 Hour Vital Signs Date Time Temp Pulse Resp B/P (MAP) Pulse Ox O2 Delivery O2 Flow Rate FiO2 02/14/19 16:00 98.4 68 18 122/68 (86) 99 02/14/19 12:00 97.9 73 20 124/70 (88) 100 02/14/19 09:00 Room Air 02/14/19 08:39 90 110/71 02/14/19 08:00 97.7 90 20 110/71 (84) 95 02/14/19 04:00 97.6 87 20 136/87 (103) 97 02/14/19 00:16 97.5 76 18 124/84 (97) 97 02/13/19 21:06 Room Air 02/13/19 20:00 97.4 74 18 129/74 (92) 94 Intake and Output 02/13/19 02/14/19 19:00 07:00 Intake Total 1200 ml Balance 1200 ml Other 1200 ml Height (Feet): 6 Height (Inches): 1.00 Weight (Pounds): 182 General Appearance: no apparent distress Cardiovascular: normal rate Ananda Resendiz MD Feb 14, 2019 19:32
--- NOTE | 2019-02-14 22:17 | Psych Consult Progress Note ---
Psychiatry Progress Note Psychiatry Progress Note Allergies: Coded Allergies: PENICILLINS (Verified Allergy, Intermediate, 10/05/15) Objective Data Height (Feet): 6 Height (Inches): 1.00 Weight (Pounds): 182 Assessment/Plan Status: progressing Mercedes Ceja MD Feb 14, 2019 22:17
--- NOTE | 2019-02-17 08:31 | Discharge Summary ---
Discharge Summary Discharge Summary _ DATE OF ADMISSION: 02/07/2019 DATE OF DISCHARGE: 02/14/2019 DISCHARGED BY: Dr. Resendiz REASON FOR ADMISSION: 88 years old male with past medical history of hypertension, pacemaker, coronary artery disease, dementia, homeless , was brought to emergency room after another homeless person called 911. Upon initial evaluation in emergency room patient was found to be dehydrated. BUN 22, creatinine 1.3. Sodium 146 , potassium 5.2 . Patient was also complaining of burning foot pain Patient subsequently admitted for further management. CONSULTANTS: psychiatrist [facility]SE: Patient admitted and started on intravenous hydration. Pain management was addressed. Patient started on gabapentin. Blood pressure was managed with amlodipine and remained stable. Renal parameters and Electrolytes were closely monitored , electrolytes corrected as needed. Sodium AND potassium stabilized. Urinalysis revealed no evidence of urinary tract infection. Fall precautions maintained . Patient was working with physical therapist. SCD for mechanical DVT prophylaxis provided. Ambulation was encouraged. Psychiatrist followed. Psychiatrist diagnosed patient with major depressive disorder. Patient started on Lexapro. Psychiatrist cleared patient for discharge when medically stable. Placement was arranged to [facility] facility for further management . Patient was stable for transfer. FINAL DIAGNOSES: Dehydration -resolved Painful neuropathy -no significant improvement Homelessness Dementia Mild malnutrition Pacemaker Hypertension History of coronary artery disease. Major depressive disorder DISCHARGE MEDICATIONS: See Medication Reconciliation list. DISCHARGE INSTRUCTIONS: Patient was discharged to the [facility] facility. Follow up with medical doctor at the facility. I have been assigned to dictate discharge summary for this account. I was not involved in the patient's management. Alejandra Giang NP Feb 17, 2019 08:31
== END 2019-02-14 17:10 | DRG 641 ==
LOC: EDBD 20:36 → EMR 20:55 → 4E 02-07 02:03 → EDBEDREQ 02-07 02:27 → 4E 02-07 03:05
DX: E86.0 Dehydration (principal); E44.1 Mild protein-calorie malnutrition; E87.5 Hyperkalemia; E87.0 Hyperosmolality and hypernatremia; I11.9 Hypertensive heart disease without heart failure; G62.9 Polyneuropathy, unspecified; F03.90 Unspecified dementia, unspecified severity, without behavioral disturbance, psychotic disturbance, mood disturbance, and anxiety; Z59.0 Homelessness; Z95.0 Presence of cardiac pacemaker; Z88.0 Allergy status to penicillin; F32.9 Major depressive disorder, single episode, unspecified; Z86.79 Personal history of other diseases of the circulatory system; M71.9 Bursopathy, unspecified
CPT/HCPCS: 36415; 71045; 80048; 80053; 80061; 81001; 82607; 84403; 84443; 85025; 96360; 99285; J7030